=== PATIENT | male | born 1955 | race Caucasian/White ===

== ENCOUNTER → 2025-03-22 | Outpatient (CLI) | payer MEDICARE, MEDICAID ==
[~2025-03-22] MED LIST: ASPI-986 MT; OXYC1TAB5 PO; QUET200T30 PO; TEMA15CA PO
== END | disposition home or self-care (01) ==
LOC: RAD 13:12
PROVIDERS: ATTEND Neurological Surgery
DX: M47.817 Spondylosis without myelopathy or radiculopathy, lumbosacral region (principal); M47.813 Spondylosis without myelopathy or radiculopathy, cervicothoracic region; M51.370 Other intervertebral disc degeneration, lumbosacral region with discogenic back pain only; M50.33 Other cervical disc degeneration, cervicothoracic region; M48.07 Spinal stenosis, lumbosacral region; M48.03 Spinal stenosis, cervicothoracic region; M43.17 Spondylolisthesis, lumbosacral region; M41.86 Other forms of scoliosis, lumbar region; M43.12 Spondylolisthesis, cervical region; M51.06 Intervertebral disc disorders with myelopathy, lumbar region; M25.78 Osteophyte, vertebrae; Z98.890 Other specified postprocedural states
CPT/HCPCS: 72141; 72148